=== PATIENT | female | born 1955 | race Caucasian/White ===

== ENCOUNTER 2016-08-06 20:50 | Inpatient (IN) | payer OTHER ==
[~2016-08-06] VITALS: Ht 154.9 cm; Wt 72.8 kg
[~2016-08-06 20:50] MED LIST: ATI1 PO; ELA10 PO; FLA500 PO; LEVAQUIN PO; NOR10T PO; ONDANSETRON ODT4 M1 PO; PRI20 PO; PROTONIX40 MG PO; SYN15 PO; ULT50 PO; ZANTAC150 MG PO
--- NOTE | 2016-08-06 21:15 | NUR ---
PT CAME TO THE ED TODAY WITH CO EPIGASTRIC PAIN WITH N/V/D SINCE THIS AM. WHEN ASKED HOW MANY EPISODES PT STATES " A LOT." PT IS AWAKE AND ALERT. BREATHING EVEN AND UNLABORED. PT DENIES ANY CP. PT RECLINING IN RNEY WITH NAD. WILL CONTINUE TO MONITOR.
[2016-08-06 21:37] LABS: BASOPHIL % 0.7 % (0-2)
[2016-08-06 21:38] LABS: UA SPECIFIC GRAVITY >=1.030 (1.005-1.035); microscopic required? YES; urine erythrocyte 3+ (NEGATIVE)
[2016-08-06 21:56] LABS: CALCIUM 9.6 mg/dL (8.5-10.1); CARBON DIOXIDE 21.3 mmol/L (21-32); CREATININE SERUM 1.1 mg/dL (0.6-1.0); POTASSIUM SERUM 3.4 mmol/L (3.5-5.1)
[2016-08-06 22:00] LABS: ALBUMIN 4.5 g/dL (3.4-5.0); BILIRUBIN TOTAL 0.8 mg/dL (0.20-1.00); TOTAL PROTEIN, SERUM 8.5 g/dL (6.4-8.2)
[2016-08-06 22:05] LABS: PLATELET COUNT 445 x10^3mcL (130-400); RED CELL DISTRIBUTION WIDTH 14.7 % (11.5-14.5)
[2016-08-06 22:49] LABS: CK-MB 1.3 ng/mL (0-3.6)
[2016-08-07] VITALS (7 sets, daily range): BP systolic 115–157; BP diastolic 51–73; Ht 154.9 cm; Wt 72.8 kg
--- NOTE | 2016-08-07 00:29 | NUR ---
REPORT GIVEN TO BEHZAD FOR FURTHER CARE OF PT.
--- NOTE | 2016-08-07 00:40 | NUR ---
RECEIVED PT FROM ED VIA Freeze Tag, CAME IN DUE TO NAUSEA, VOMITING, DIARRHEA AND ABDOMINAL PAIN. AAOX4. C/O 09/11 ACHING HEADACHE. NO SOB NOTED. DENIES CHEST PAIN/PRESSURE, HR AT 101, SINUS TACHYCARDIA ON THE MONITOR. DENIES ABDOMINAL DISCOMFORT. IV SITE PATENT AND INTACT. SIDE RAILS UPX2. CALL LIGHT ON REACH. WILL CONT TO MONITOR
[2016-08-07 00:43] LABS: MAGNESIUM 1.7 mg/dL (1.8-2.4); PHOSPHOROUS 2.7 mg/dL (2.5-4.9)
[2016-08-07 00:44] LABS: CHOLESTEROL/HDL RATIO 6.8
[2016-08-07 00:50] LABS: FREE T4 0.75 ng/dL (0.76-1.46)
[2016-08-07 01:10] LABS: AMPHETAMINE QUAL UR NONE DETECTED (NEG <=1000)
--- NOTE | 2016-08-07 01:27 | NUR ---
MEDICATED W/ KLOR-CON 40 MMEQS FOR POTASSIUM LEVEL OF 3.4 AND MAGNESIUM OXIDE 400 MG PO FOR MAGNESIUM LEVEL=1.7. WILL CONT TO MONITOR
--- NOTE | 2016-08-07 01:27 | NUR ---
K-PAD APPLIED ON THE LOWER BACK.
--- NOTE | 2016-08-07 02:50 | NUR ---
DR. CONNELL MADE AWARE THAT LACTIC ACID=2.5. NEW ORDER RECEIVED FOR REPEAT LACTIC ACID.
--- NOTE | 2016-08-07 03:35 | NUR ---
DR. CONNELL MADE AWARE THAT LACTIC ACID=2.5 AND WBC=16.5, NO NEW ORDERS RECEIVED
[2016-08-07 04:15] LABS: BASOPHIL % 0.2 % (0-2); PLATELET COUNT 364 x10^3mcL (130-400)
[2016-08-07 04:20] LABS: RED CELL DISTRIBUTION WIDTH 14.9 % (11.5-14.5)
[2016-08-07 04:21] LABS: T3 TOTAL 0.85 ng/mL
[2016-08-07 04:26] LABS: CALCIUM 8.2 mg/dL (8.5-10.1); CARBON DIOXIDE 24.7 mmol/L (21-32); CHLORIDE SERUM 106 mmol/L (98-107); CREATININE SERUM 0.7 mg/dL (0.6-1.0); GFR1 > 60 mL/min; GLUCOSE SERUM 105 mg/dL (74-106); MAGNESIUM 3.1 mg/dL (1.8-2.4); PHOSPHOROUS 3.4 mg/dL (2.5-4.9); POTASSIUM SERUM 3.7 mmol/L (3.5-5.1); SODIUM SERUM 139 mmol/L (136-145)
--- NOTE | 2016-08-07 06:22 | NUR ---
PT HAS HER EYES CLOSED, NO S/S OF PAIN AND SOB NOTED. NEEDS ARE ATTENDED. CALL LIGHT ON REACH. SIDE RAILS UPX2. IV SITE PATENT AND INTACT. WILL CONT TO MONITOR
--- NOTE | 2016-08-07 07:05 | NUR ---
BEDSIDE REPORT GIVEN TO INCOMING NURSE KATEY FOR CONTINUITY OF CARE
--- NOTE | 2016-08-07 07:45 | NUR ---
PATIENT AOX4. TELE 21, DENIES CP. LUNGS CTA, NO RESP DISTRESS NOTED ON RA. PERIPHERAL PULSES PALPABLE. BOWEL SOUNDS ACTIVE, LAST BM STATED YESTERDAY WAS DIARRHEA, DENIES DIARRHEA AT THIS TIME. STATES PAIN TO EPIGASTRIC/ABD REGION, WILL MEDICATE APPROPRIATELY PER EMAR. DENIES NAUSEA/VOMIT AT THIS TIME. SKIN INTACT. IV ACCESS TO LW, RUNNING NS INFUSING WELL SITE WNL. CALL LIGHT WITHIN REACH.
--- NOTE | 2016-08-07 09:10 | NUR ---
DR MUSTAFA AND TEAM AT BEDSIDE. INFORMED PATIENT SHE WILL HAVE CT ABD DONE AND SHE MAY BE SEEN BY A GI SPECIALIST DEPENDING ON RESULTS. PATIENT VERBALIZED UNDERTSANDING.
--- NOTE | 2016-08-07 11:00 | NUR ---
PATIENT C/O HEADACHE. TYLENOL GIVEN, WILL CONT TO MONITOR.
--- NOTE | 2016-08-07 12:30 | NUR ---
PATIENT C/O OF MILD NAUSEA AND REQUESTING FOR MEDICATION. ZOFRAN GIVEN. WILL CONT TO MONITOR. VISITOR AT BEDSIDE.
--- NOTE | 2016-08-07 14:33 | NUR ---
PATIENT DOWN FOR CT ABDOMEN. HEPLOCKED.
--- NOTE | 2016-08-07 14:55 | NUR ---
PATIENT BACK FROM CT. REQUESTING TO EAT. INFORMED HER AND THAT WE ARE WAITING FOR CT RESULTS BEFORE DR CAN PUT IN ANY ORDER TO EAT.
--- NOTE | 2016-08-07 15:37 | NUR ---
ASKING "WHY IS IT TAKING SO LONG? SHE HASN'T EATEN SINCE YESTERDAY." INFORMED HIM STILL WAITING ON RESULTS, NO RESULTS AVAILABLE YET. DR TOSCANO MADE AWARE BUT DR MAXWELL TO SPEAK WITH THEM AT THIS TIME BUT STATES PATIENT MOST LIKELY STAYING INPATIENT TONIGHT. INFORMED PATIENT AND THAT EATING MAY WORSEN HER CONDITION AND WE STILL NEED TO FIND OUT WHAT'S WRONG. INFORMED PATIENT SHE CAN EAT BUT SHE WOULD NEED TO SIGN REFUSAL OF TREATMENT FORM. STATES "I HAVE TO GO NOW" AND PATIENT STATES "I MIGHT NOT HAVE A RIDE LATER IF THEY LET ME GO TODAY" INFORMED PATIENT AND RISK OF LEAVING AMA AND NOT RECOMMENDED AND ALSO INFORMED THAT SAID SHE WILL MOST LIKELY STAY THE NIGHT. AND PATIENT VERBALIZED UNDERSTANDING. LEAVING UNIT AND PATIENT REQUESTING FOR PAIN MED FOR ABDOMEN. WILL MEDICATE PER EMAR.
--- NOTE | 2016-08-07 16:45 | NUR ---
CT ABD RESULTS AVAILABLE, DR TOSCANO ORDERED GI CONSULT. ASKED DR IF PATIENT ALLOWED TO EAT, ORDERS PLACED FOR CLEAR LIQUIDS FOR NOW.
--- NOTE | 2016-08-07 17:45 | NUR ---
CLEAR LIQ MEAL TRAY AT BEDSIDE, PATIENT STATES HAS NO APPETITE FOR SOUP. REQUESTING FOR PAIN MEDICATION, ULTRAM NOT VERY EFFECTIVE. WILL MEDICATE WITH TORADOL. DENIES NAUSEA WITH COFFEE. WILL CONT TO MONITOR.
--- NOTE | 2016-08-07 18:45 | NUR ---
PER DR TOSCANO, DR RAMIREZ ALLOWING PATIENT TO EAT WHATEVER SHE CAN TOLERATE UNTIL MIDNIGHT AND WILL BE SEEN BY GI IN THE AM. OFFERED PATIENT PUDDING, APPLESAUCE, JELLO BUT PATIENT REFUSED. OFFERED SANDWICH AND STATES WILL TRY. INFORMED PATIENT TO LET NURSE KNOW IF UNABLE TO TOLERATE AND IF FEELING NAUSEAS OR INCREASE IN ABD PAIN. PATIENT VERBALIZED UNDERSTANDING. WILL CONT TO MONITOR AND ENDORSE TO NOC NURSE.
--- NOTE | 2016-08-07 19:30 | NUR ---
PT ALERT/ORIENTED X4. NO C/O PAIN. NO C/O N/V AT THIS TIME. TELE #21, SR, HR; 68. PT ASSESSED; SEE NSG FLOWSHEET. SAFETY REINFORCED; SEE EDUCAT SHEET. WILL CONTINUE TO MONITOR.
--- NOTE | 2016-08-07 23:52 | NUR ---
PT SLEEPING.NO DISTRESS NOTED. WILL CONTINUE TO MONITOR.
[2016-08-08] VITALS (7 sets, daily range): BP systolic 101–194; BP diastolic 46–95
--- NOTE | 2016-08-08 02:19 | NUR ---
PT SLEEPING. NO DISTRESS NOTED. BREATHING IS EVEN AND UNLABORED. WILL CONTINUE TO MONITOR.
--- NOTE | 2016-08-08 05:00 | NUR ---
PT SLEPT IN MODERATE INTERVALS THROUGHOUT THE NIGHT. WILL CONTINUE TO MONITOR.
[2016-08-08 06:28] LABS: BASOPHIL % 0.5 % (0-2); PLATELET COUNT 313 x10^3mcL (130-400)
[2016-08-08 06:35] LABS: RED CELL DISTRIBUTION WIDTH 14.8 % (11.5-14.5)
[2016-08-08 06:51] LABS: CALCIUM 8.2 mg/dL (8.5-10.1); CARBON DIOXIDE 24.2 mmol/L (21-32); CHLORIDE SERUM 109 mmol/L (98-107); CREATININE SERUM 0.7 mg/dL (0.6-1.0); GFR1 > 60 mL/min; GLUCOSE SERUM 91 mg/dL (74-106); MAGNESIUM 2.2 mg/dL (1.8-2.4); POTASSIUM SERUM 3.5 mmol/L (3.5-5.1); SODIUM SERUM 143 mmol/L (136-145)
--- NOTE | 2016-08-08 07:28 | NUR ---
PT SEEN AWAKE, ALERT, ORIENTED X3. PT NO COMPLAIN PAIN, N/V. PT BREATHING ON RA, EVEN, UNLABORED. IV SITE PATENT, INTACT. IVF INFUSING WELL.
--- NOTE | 2016-08-08 09:00 | NUR ---
PT IS TAKEN TO GI LAB FOR EGD.
--- NOTE | 2016-08-08 10:10 | NUR ---
PT BACK FROM GI LAB AFTER EGD. PT STILL DROWSY, BUT AROUSABLE. WILL PROVIDE MORNING MED LATER WHEN PT IS MORE AWAKE.
--- NOTE | 2016-08-08 12:30 | NUR ---
PT'S FAMILY AT BED SIDE. PT IS AWAKE, BUT COMPLAIN OF ABD PAIN AND NAUSEA. ZOFRAN AND TORODOL GIVEN TO MANAGE.
--- NOTE | 2016-08-08 14:10 | NUR ---
PT STILL COMPLAIN OF NAUSEA AND ABD PAIN. PT VOMIT X2. REGLAN AND DILAUDID GIVEN. WILL RECHECK PT'S VS.
--- NOTE | 2016-08-08 15:42 | NUR ---
PT COMPLAIN OF MODERATE ALVAREZ, TRAMADOL GIVEN. PT STATED NAUSEA RESOVLED MOST AFTER MEDS.
--- NOTE | 2016-08-08 19:40 | NUR ---
PT ALERT/ORIENTED X4. PT C/O ABD PAIN AND N/V. WILL MEDICATE PER MD PRN ORDER. PT ASSESSED; SEE NSG FLOWSHEET. SAFETY REINFORCED; SEE EDUCAT SHEET. WILL CONTINUE TO MONITOR.
--- NOTE | 2016-08-08 19:49 | NUR ---
PT C/O N/V AND ABD PAIN. SPOKE WITH DR TOSCANO WHO STATED TO ADMINISTER DILAUDID 0.5 MG IVP AND THAT WILL HELP WITH THE PAIN WELL THE NAUSEA. DILAUDID ADMINISTERED (SEE EMAR). WILL CONTINUE TO MONITOR.
--- NOTE | 2016-08-08 20:11 | NUR ---
GI-COCOTAIL GIVEN PER ORDER. HOWEVER, PT IS ONLY ABLE TO HOLD MED DOWN FOR ABOUT 30 MINS THEN VOMIT AGAIN. PAIN AND NAUSEA NOT GOT RELIEVED. MADE DR. TOSCANO AND RECEIVING NURSE AWARE. CONCERNS ADRESSED ABOUT PAIN AND HIGH BP. IV SITE PATENT, INTACT. IVF INFUSING WELL.
--- NOTE | 2016-08-08 20:18 | NUR ---
PT NO C/O ABD PAIN OR N/V. PT WAS MEDICATED WITH DILAUDID 0.5 MG IVP AT 1949. WILL CONTINUE TO MONITOR.
--- NOTE | 2016-08-08 23:00 | NUR ---
PT AWAKE. NO C/O PAIN. WILL CONTINUE TO MONITOR.
--- NOTE | 2016-08-09 01:30 | NUR ---
PT SLEEPING. NO DISTRESS NOTED. WILL CONTINUE TO MONITOR.
--- NOTE | 2016-08-09 02:35 | NUR ---
PT C/O ABD PAIN AND N/V. MEDICATED WITH TORADOL AND ZOFRAN PER MD PRN ORDER. WILL CONTINUE TO MONITOR.
--- NOTE | 2016-08-09 03:56 | NUR ---
PT NOW SLEEPING. PT WAS GIVEN ZOFRAN AT 0235 FOR N/V. TORADOL WAS ADMINISTERED AT 0235 FOR ABD PAIN (SEE EMAR). WILL CONTINUE TO MONITOR.
--- NOTE | 2016-08-09 05:23 | NUR ---
PT SLEPT IN MODERATE INTERVALS THROUGHOUT THE NIGHT. MEDICATED FOR ABD PAIN 2X'S DURING SHIFT (SEE EMAR). MEDICATED FOR NAUSEA 1X DURING SHIFT (SEE EMAR). WILL CONTINUE TO MONITOR.
[2016-08-09 06:25] LABS: CALCIUM 8.4 mg/dL (8.5-10.1); CARBON DIOXIDE 22.7 mmol/L (21-32); CHLORIDE SERUM 100 mmol/L (98-107); CREATININE SERUM 0.6 mg/dL (0.6-1.0); GFR1 > 60 mL/min; GLUCOSE SERUM 102 mg/dL (74-106); MAGNESIUM 2.5 mg/dL (1.8-2.4); POTASSIUM SERUM 3.3 mmol/L (3.5-5.1); SODIUM SERUM 137 mmol/L (136-145)
[2016-08-09 06:29] LABS: BASOPHIL % 0.3 % (0-2); PLATELET COUNT 365 x10^3mcL (130-400)
[2016-08-09 06:54] LABS: RED CELL DISTRIBUTION WIDTH 14.7 % (11.5-14.5)
[2016-08-09 06:58] VITALS: BP 158/76
--- NOTE | 2016-08-09 07:42 | NUR ---
PT AWAKE ALERT AND ORIENTED X4. MED SURG PT. PULSES EQUAL BILATERAL NO EDEMA NOTED. LUNGS CTA, PT COMFORTABLE ON RA. BOWEL TONES ACTIVE IN ALL 4 QUADRANTS. PT C/O LOOSE STOOL, ABD PAIN AND NAUSEA. BRP, STEADY GAIT. MILD GENERALIZED WEAKNESS, NON SKID FOOTWEAR IN PLACE, CALL LIGHT IN INREACH. IV THE LW WNL. SKIN IS CDI. PT IS CALM AND COOPERATIVE WITH CARE. WILL CONTINUE TO MONITOR.
--- NOTE | 2016-08-09 09:45 | NUR ---
PT C/O WORSENING ANXIETY, STATES SHE HAS FELT ANXIOUS THROUGHOUT THE NIGHT, MEDICATED ACCORDING TO MANPREET OSCAR CONTINUE TO MONITOR
[2016-08-09 09:46] VITALS: BP 164/83
--- NOTE | 2016-08-09 10:43 | NUR ---
PT RESTING IN BED NO SIGNS OF DISTRESS CALL LIGHT INREACH WILL CONTINUE TO MONITOR. PT ABLE TO MAKE NEEDS KNOWN NO SIGNS OF DISTRESS.
--- NOTE | 2016-08-09 12:55 | NUR ---
PT RESTING IN BED GUSBAND AT BEDSIDE. CALL LIGHT IN REACH. NO SIGNS OF DISTRESS CALL LIGHT IN REACH. WILL CONTINUE TO MONITOR.
[2016-08-09] MEDS ORDERED: AMITIZA24 MC1 PO (14:46)
[2016-08-09] MEDS ORDERED: SEN PO (14:48)
[2016-08-09] MEDS ORDERED: METOCLOPRAMIDE10 M2 PO (14:51)
--- NOTE | 2016-08-09 16:51 | NUR ---
PT GIVEN SANDWICH AND CRACKER, PT ATE AND TOLERATED WELL NO C/O N/V. DR HOPE MADE AWARE.
[2016-08-09 17:46] VITALS: BP 164/83
--- NOTE | 2016-08-09 18:28 | NUR ---
PT RESTIN INBED NO SIGNS OF DISTRESS CALL LIGHT IN REACH WILL CONTINUE TO MONITOR.
--- NOTE | 2016-08-09 18:44 | NUR ---
DISCHARGE INSTRUCTIONS GIVENT O PT, PT MADE AWARE OF FOLLOW UP APPT WITH PCP. PT VERBALIZED UNDERSTANDING. IV DC'D INTACT. ALL BELONGINGS TAKEN WITH PT. PT INFORMED OF MEDICATIONS SENT ELECTRONICALLY TO PHARMACY PT VERBALIZED UNDERSTANDING. PT WHEELED OFF THE FLOOR BY MOLLY.
== END 2016-08-09 18:44 | disposition home or self-care (01) | DRG 391 ==
LOC: ED 20:50 → MU 23:48 → DU 23:48 → MU 08-08 11:35
PROVIDERS: Emergency Medicine; ADMIT Family Medicine
DX: R11.2 Nausea with vomiting, unspecified (principal); N17.0 Acute kidney failure with tubular necrosis; R65.10 Systemic inflammatory response syndrome (SIRS) of non-infectious origin without acute organ dysfunction; T40.2X5A Adverse effect of other opioids, initial encounter; R10.9 Unspecified abdominal pain; E87.6 Hypokalemia; E83.42 Hypomagnesemia; R31.9 Hematuria, unspecified; K21.9 Gastro-esophageal reflux disease without esophagitis; E03.9 Hypothyroidism, unspecified; E78.5 Hyperlipidemia, unspecified; M54.5 Low back pain; G89.29 Other chronic pain; M19.90 Unspecified osteoarthritis, unspecified site; F17.210 Nicotine dependence, cigarettes, uncomplicated; F32.9 Major depressive disorder, single episode, unspecified; F41.9 Anxiety disorder, unspecified; Z68.30 Body mass index [BMI] 30.0-30.9, adult; Z79.891 Long term (current) use of opiate analgesic; Y92.009 Unspecified place in unspecified non-institutional (private) residence as the place of occurrence of the external cause
CPT/HCPCS: 43235; 83880; 84439; 87046; 87046-59; C9113; J1170; J1200; J1610; J1885; J2250; J2310; J2405; J2765; J3010; J3475; J3480; J3490; J7030; Q0092; Q9967

== ENCOUNTER 2017-04-03 15:56 | Inpatient (IN) | payer OTHER ==
[~2017-04-03] VITALS: Ht 160 cm; Wt 65.3 kg
[~2017-04-03 15:56] MED LIST changes: +AMITIZA24 MC1 PO; +METOCLOPRAMIDE10 M2 PO; +SEN PO
[2017-04-03 16:04] VITALS: Ht 160 cm; Wt 65.3 kg
[2017-04-03 16:57] LABS: BASOPHIL % 0.1 % (0-2)
[2017-04-03 16:58] LABS: PLATELET COUNT 493 x10^3mcL (130-400); RED CELL DISTRIBUTION WIDTH 15.7 % (11.5-14.5)
[2017-04-03 17:06] LABS: CALCIUM 9.6 mg/dL (8.5-10.1); CARBON DIOXIDE 20.7 mmol/L (21-32); CHLORIDE SERUM 103 mmol/L (98-107); CREATININE SERUM 0.8 mg/dL (0.6-1.0); GFR1 > 60 mL/min; GLUCOSE SERUM 180 mg/dL (74-106); POTASSIUM SERUM 3.3 mmol/L (3.5-5.1); SODIUM SERUM 141 mmol/L (136-145)
[2017-04-03 17:21] LABS: ALBUMIN 4.6 g/dL (3.4-5.0); ALKALINE PHOSPHATASE 66 U/L (46-116); ALT/SGPT 19 U/L (14-59); AMYLASE 37 U/L (25-115); AST/SGOT 13 U/L (15-37); BILIRUBIN TOTAL 0.8 mg/dL (0.20-1.00); LIPASE 71 IU/L (73-393); T4(THYROXINE) 9.5 ug/dL (4.7-13.3)
[2017-04-03 17:36] LABS: CHOLESTEROL 271 mg/dL (<200); HDL CHOLESTEROL 34 mg/dL (40-60); TOTAL PROTEIN, SERUM 8.4 g/dL (6.4-8.2)
[2017-04-03 18:44] LABS: UA SPECIFIC GRAVITY 1.015 (1.005-1.035); microscopic required? YES; urine erythrocyte 1+ (NEGATIVE)
[2017-04-03 18:51] LABS: AMPHETAMINE QUAL UR NONE DETECTED (NEG <=1000)
[2017-04-03 20:18] VITALS: BP 175/70
[2017-04-03] MEDS ORDERED: HYDROCODONE BIT1 T49 PO (20:48)
[2017-04-03] MEDS ORDERED: APAP/HYDROCODON1 T11 PO (20:50)
[2017-04-03 21:32] LABS: FREE T4 0.96 ng/dL (0.76-1.46); FREE THYROXINE INDEX 2.6 ug/dL (1.4-4.5); T4(THYROXINE) 7.8 ug/dL (4.7-13.3)
[2017-04-03 21:51] LABS: MAGNESIUM 1.8 mg/dL (1.8-2.4); PHOSPHOROUS 3.1 mg/dL (2.5-4.9)
[2017-04-03 21:53] LABS: CHOLESTEROL/HDL RATIO 7.4
[2017-04-03 22:07] LABS: T3 TOTAL 0.85 ng/mL
[2017-04-04 05:29] VITALS: BP 162/76
[2017-04-04 09:09] LABS: BASOPHIL % 0.8 % (0-2); PLATELET COUNT 423 x10^3mcL (130-400); RED CELL DISTRIBUTION WIDTH 15.6 % (11.5-14.5)
[2017-04-04 09:21] VITALS: BP 143/55
[2017-04-04 09:24] LABS: CALCIUM 8.7 mg/dL (8.5-10.1); CARBON DIOXIDE 23.4 mmol/L (21-32); CHLORIDE SERUM 106 mmol/L (98-107); CREATININE SERUM 0.7 mg/dL (0.6-1.0); GFR1 > 60 mL/min; GLUCOSE SERUM 115 mg/dL (74-106); MAGNESIUM 1.9 mg/dL (1.8-2.4); PHOSPHOROUS 3.2 mg/dL (2.5-4.9); POTASSIUM SERUM 3.8 mmol/L (3.5-5.1); SODIUM SERUM 142 mmol/L (136-145)
[2017-04-04 13:37] VITALS: BP 138/72
[2017-04-04 16:40] VITALS: BP 147/62
[2017-04-04 20:51] VITALS: BP 131/77
[2017-04-05] VITALS (11 sets, daily range): BP systolic 117–185; BP diastolic 59–92
[2017-04-05 06:50] LABS: BASOPHIL % 0.4 % (0-2); PLATELET COUNT 359 x10^3mcL (130-400)
[2017-04-05 06:53] LABS: CALCIUM 8.8 mg/dL (8.5-10.1); CARBON DIOXIDE 20.4 mmol/L (21-32); CHLORIDE SERUM 108 mmol/L (98-107); CREATININE SERUM 0.6 mg/dL (0.6-1.0); GFR1 > 60 mL/min; GLUCOSE SERUM 105 mg/dL (74-106); MAGNESIUM 2.2 mg/dL (1.8-2.4); PHOSPHOROUS 2.7 mg/dL (2.5-4.9); SODIUM SERUM 143 mmol/L (136-145)
[2017-04-05 06:54] LABS: RED CELL DISTRIBUTION WIDTH 15.8 % (11.5-14.5)
[2017-04-05] MEDS ORDERED: ELA10 PO (15:26)
[2017-04-05] MEDS ORDERED: LISINOPRIL10 MG PO (16:39)
[2017-04-05] MEDS ORDERED: ZOFRAN4 M3 PO (17:43)
[2017-04-06 00:25] VITALS: BP 143/74
[2017-04-06 05:29] VITALS: BP 156/78
[2017-04-06 06:41] LABS: CALCIUM 8.7 mg/dL (8.5-10.1); CARBON DIOXIDE 23.5 mmol/L (21-32); CHLORIDE SERUM 103 mmol/L (98-107); CREATININE SERUM 0.6 mg/dL (0.6-1.0); GFR1 > 60 mL/min; GLUCOSE SERUM 90 mg/dL (74-106); MAGNESIUM 2.2 mg/dL (1.8-2.4); PHOSPHOROUS 2.7 mg/dL (2.5-4.9); SODIUM SERUM 140 mmol/L (136-145)
[2017-04-06 07:14] LABS: BASOPHIL % 0.2 % (0-2); PLATELET COUNT 371 x10^3mcL (130-400)
[2017-04-06 07:15] LABS: RED CELL DISTRIBUTION WIDTH 15.8 % (11.5-14.5)
[2017-04-06] MEDS ORDERED: LISINOPRIL10 MG PO (09:51)
[2017-04-06 10:06] VITALS: BP 150/75
[2017-04-06 10:35] VITALS: BP 110/61
== END 2017-04-06 14:15 | disposition home or self-care (01) | DRG 391 ==
LOC: ED 15:56 → DU 19:30 → MU 04-05 21:22
PROVIDERS: Emergency Medicine; Family Medicine; Internal Medicine Gastroenterology
PROC: 0DB68ZX Excision of Stomach, Via Natural or Artificial Opening Endoscopic, Diagnostic (ICD-10-PCS; principal; 2017-04-05 13:00)
PROC: 0DJD8ZZ Inspection of Lower Intestinal Tract, Via Natural or Artificial Opening Endoscopic (ICD-10-PCS; 2017-04-05 13:00)
DX: R10.13 Epigastric pain (principal); N17.0 Acute kidney failure with tubular necrosis; T40.2X5A Adverse effect of other opioids, initial encounter; R11.2 Nausea with vomiting, unspecified; K29.70 Gastritis, unspecified, without bleeding; K21.9 Gastro-esophageal reflux disease without esophagitis; M54.5 Low back pain; G89.29 Other chronic pain; I16.0 Hypertensive urgency; R80.9 Proteinuria, unspecified; E87.6 Hypokalemia; R31.9 Hematuria, unspecified; K64.8 Other hemorrhoids; D17.71 Benign lipomatous neoplasm of kidney; E78.2 Mixed hyperlipidemia; D47.3 Essential (hemorrhagic) thrombocythemia; E03.9 Hypothyroidism, unspecified; M19.90 Unspecified osteoarthritis, unspecified site; M81.0 Age-related osteoporosis without current pathological fracture; F41.8 Other specified anxiety disorders; F17.210 Nicotine dependence, cigarettes, uncomplicated; Z68.27 Body mass index [BMI] 27.0-27.9, adult; Y92.009 Unspecified place in unspecified non-institutional (private) residence as the place of occurrence of the external cause
CPT/HCPCS: 43235; 45378; 83880; 84439; J0360; J0500; J1200; J1610; J1630; J1885; J2060; J2250; J2310; J2405; J3010; J3490; J7030; J8597; Q0092

== ENCOUNTER 2017-04-08 14:15 | Emergency (ER) | payer OTHER ==
[~2017-04-08 14:15] MED LIST changes: +APAP/HYDROCODON1 T11 PO; +HYDROCODONE BIT1 T49 PO; +LISINOPRIL10 MG PO; +ZOFRAN4 M3 PO
[2017-04-08 17:18] LABS: ALBUMIN 4.1 g/dL (3.4-5.0); ALKALINE PHOSPHATASE 69 U/L (46-116); ALT/SGPT 60 U/L (14-59); AMYLASE 46 U/L (25-115); AST/SGOT 20 U/L (15-37); BILIRUBIN TOTAL 0.7 mg/dL (0.20-1.00); CARBON DIOXIDE 20.4 mmol/L (21-32); CHLORIDE SERUM 103 mmol/L (98-107); CREATININE SERUM 0.7 mg/dL (0.6-1.0); GFR1 > 60 mL/min; GLUCOSE SERUM 130 mg/dL (74-106); LIPASE 119 IU/L (73-393); SODIUM SERUM 139 mmol/L (136-145); TOTAL PROTEIN, SERUM 8.2 g/dL (6.4-8.2)
[2017-04-08 17:20] LABS: BASOPHIL % 0.1 % (0-2); POTASSIUM SERUM 2.8 mmol/L (3.5-5.1)
[2017-04-08 17:40] LABS: PLATELET COUNT 410 x10^3mcL (130-400); RED CELL DISTRIBUTION WIDTH 15.5 % (11.5-14.5)
[2017-04-08 21:07] VITALS: BP 159/85
== END 2017-04-08 21:07 | disposition home or self-care (01) ==
LOC: ED 14:15
PROVIDERS: Emergency Medicine
DX: G89.29 Other chronic pain (principal); R10.9 Unspecified abdominal pain; I10 Essential (primary) hypertension; Z88.5 Allergy status to narcotic agent
CPT/HCPCS: 83880; J1200; J1630; J2405; J3010; J3480; J3490; J7030

== ENCOUNTER 2017-09-07 20:10 | Inpatient (IN) | payer OTHER ==
[~2017-09-07] VITALS: Ht 154.9 cm; Wt 68.1 kg
[2017-09-07 20:33] VITALS: Ht 154.9 cm; Wt 68.1 kg
[2017-09-07 22:23] LABS: PLATELET COUNT 593 x10^3mcL (130-400); RED CELL DISTRIBUTION WIDTH 16.4 % (11.5-14.5)
[2017-09-07 22:24] LABS: CALCIUM 10.5 mg/dL (8.5-10.1); CARBON DIOXIDE 18.8 mmol/L (21-32); POTASSIUM SERUM 3.6 mmol/L (3.5-5.1)
[2017-09-07 22:28] LABS: ALBUMIN 4.9 g/dL (3.4-5.0); BILIRUBIN TOTAL 0.9 mg/dL (0.20-1.00); TOTAL PROTEIN, SERUM 9.1 g/dL (6.4-8.2)
[2017-09-07 22:54] LABS: BAND NEUTROPHIL 2 % (0-10); MONOCYTE 3 % (0-7); SEGMENTED NEUTROPHILS 90 % (37-75)
[2017-09-07 22:55] LABS: PLATELET MORPHOLOGY PLATELETS INCREASED; rbc morphology (normal/abnorm) ABNORMAL (NORMAL)
[2017-09-07 23:57] LABS: UA SPECIFIC GRAVITY >=1.030 (1.005-1.035); microscopic required? YES; urine erythrocyte 2+ (NEGATIVE)
[2017-09-08 03:16] VITALS: BP 124/56
[2017-09-08 09:02] LABS: T3 TOTAL 0.79 ng/mL
[2017-09-08 09:47] LABS: MAGNESIUM 1.8 mg/dL (1.8-2.4); PHOSPHOROUS 3.9 mg/dL (2.5-4.9)
[2017-09-08 09:48] LABS: CHOLESTEROL/HDL RATIO 7.1
[2017-09-08 09:59] LABS: FREE T4 0.82 ng/dL (0.76-1.46); FREE THYROXINE INDEX 2.1 ug/dL (1.4-4.5); T4(THYROXINE) 6.1 ug/dL (4.7-13.3)
[2017-09-08 10:04] VITALS: BP 124/52
[2017-09-08 12:54] VITALS: BP 106/58
[2017-09-08 14:59] LABS: AMPHETAMINE QUAL UR NONE DETECTED (See below)
[2017-09-08 17:25] VITALS: BP 185/80
[2017-09-08 21:04] VITALS: BP 181/80
[2017-09-08 21:12] VITALS: BP 193/96
[2017-09-09] VITALS (12 sets, daily range): BP systolic 87–181; BP diastolic 39–85
[2017-09-09 06:06] LABS: CALCIUM 8.3 mg/dL (8.5-10.1); CARBON DIOXIDE 24.3 mmol/L (21-32); CHLORIDE SERUM 101 mmol/L (98-107); CREATININE SERUM 0.7 mg/dL (0.6-1.0); GFR1 > 60 mL/min; GLUCOSE SERUM 140 mg/dL (74-106); POTASSIUM SERUM 3.3 mmol/L (3.5-5.1); SODIUM SERUM 137 mmol/L (136-145)
[2017-09-09 06:11] LABS: MAGNESIUM 1.7 mg/dL (1.8-2.4); PHOSPHOROUS 4.1 mg/dL (2.5-4.9)
[2017-09-09 06:56] LABS: BASOPHIL % 0 % (0-2); PLATELET COUNT 452 x10^3mcL (130-400)
[2017-09-10 05:22] VITALS: BP 150/86
[2017-09-10 08:51] VITALS: BP 171/97
[2017-09-10 09:26] LABS: BASOPHIL % 0.3 % (0-2)
[2017-09-10 09:27] LABS: PLATELET COUNT 490 x10^3mcL (130-400); RED CELL DISTRIBUTION WIDTH 16.1 % (11.5-14.5)
[2017-09-10 09:36] LABS: CALCIUM 8.9 mg/dL (8.5-10.1); CARBON DIOXIDE 22.4 mmol/L (21-32); CHLORIDE SERUM 97 mmol/L (98-107); CREATININE SERUM 0.7 mg/dL (0.6-1.0); GFR1 > 60 mL/min; GLUCOSE SERUM 107 mg/dL (74-106); POTASSIUM SERUM 3.1 mmol/L (3.5-5.1); SODIUM SERUM 132 mmol/L (136-145)
[2017-09-10 13:10] VITALS: BP 152/82
[2017-09-10 16:35] VITALS: BP 114/71
== END 2017-09-10 18:35 | disposition home or self-care (01) | DRG 341 ==
LOC: ED 20:10 → DU 09-08 01:01
PROVIDERS: Emergency Medicine; Internal Medicine
PROC: 0DTJ4ZZ Resection of Appendix, Percutaneous Endoscopic Approach (ICD-10-PCS; principal; 2017-09-09)
DX: K35.80 Unspecified acute appendicitis (principal); N17.0 Acute kidney failure with tubular necrosis; R31.9 Hematuria, unspecified; I16.0 Hypertensive urgency; I10 Essential (primary) hypertension; K21.9 Gastro-esophageal reflux disease without esophagitis; K59.09 Other constipation; M54.5 Low back pain; R73.03 Prediabetes; E78.5 Hyperlipidemia, unspecified; E03.9 Hypothyroidism, unspecified; M19.90 Unspecified osteoarthritis, unspecified site; F41.9 Anxiety disorder, unspecified; F32.9 Major depressive disorder, single episode, unspecified; Z68.28 Body mass index [BMI] 28.0-28.9, adult; Z72.0 Tobacco use
CPT/HCPCS: 82962; 83880; 84439; 87046; 87046-59; 94150; J0330; J1170; J1644; J1885; J2175; J2250; J2405; J2543; J2550; J2704; J2710; J3010; J3490; J7030; J7120; Q0092

== ENCOUNTER 2017-10-10 02:10 | Inpatient (IN) | payer OTHER ==
[~2017-10-10] VITALS: Ht 3048 cm; Wt 63.7 kg
[~2017-10-10 02:10] MED LIST changes: +ACETAMINOPHEN &1 TA1 PO; -APAP/HYDROCODON1 T11 PO; -ONDANSETRON ODT4 M1 PO; +ONDANSETRON4 M3
[2017-10-10 02:17] VITALS: Ht 3048 cm; Wt 63.7 kg
[2017-10-10 03:50] LABS: UA SPECIFIC GRAVITY >=1.030 (1.005-1.035); microscopic required? YES; urine erythrocyte 2+ (NEGATIVE)
[2017-10-10 04:00] LABS: CALCIUM 9.9 mg/dL (8.5-10.1); CARBON DIOXIDE 23.6 mmol/L (21-32); CHLORIDE SERUM 103 mmol/L (98-107); CREATININE SERUM 0.8 mg/dL (0.6-1.0); GFR1 > 60 mL/min; GLUCOSE SERUM 174 mg/dL (74-106); POTASSIUM SERUM 3.8 mmol/L (3.5-5.1); SODIUM SERUM 139 mmol/L (136-145)
[2017-10-10 04:04] LABS: ALBUMIN 4.2 g/dL (3.4-5.0); ALKALINE PHOSPHATASE 110 U/L (46-116); ALT/SGPT 15 U/L (14-59); AST/SGOT 20 U/L (15-37); BILIRUBIN TOTAL 0.53 mg/dL (0.20-1.00); LIPASE 68 IU/L (73-393); TOTAL PROTEIN, SERUM 8.2 g/dL (6.4-8.2)
[2017-10-10 04:11] LABS: PLATELET COUNT 716 x10^3mcL (130-400); RED CELL DISTRIBUTION WIDTH 19.4 % (11.5-14.5)
[2017-10-10 04:38] LABS: BAND NEUTROPHIL 3 % (0-10); METAMYELOCTE 3 % (0-2); MONOCYTE 1 % (0-7); SEGMENTED NEUTROPHILS 86 % (37-75)
[2017-10-10 04:40] LABS: PLATELET MORPHOLOGY PLATELETS INCREASED; rbc morphology (normal/abnorm) ABNORMAL (NORMAL)
[2017-10-10 06:10] VITALS: BP 195/82
[2017-10-10 09:32] VITALS: BP 168/87
[2017-10-10 10:03] LABS: MAGNESIUM 1.8 mg/dL (1.8-2.4); PHOSPHOROUS 3.7 mg/dL (2.5-4.9)
[2017-10-10 10:08] LABS: FREE T4 0.93 ng/dL (0.76-1.46); FREE THYROXINE INDEX 2.3 ug/dL (1.4-4.5)
[2017-10-10 10:10] LABS: CHOLESTEROL/HDL RATIO 7.6
[2017-10-10 11:43] LABS: T3 TOTAL 1.15 ng/mL
[2017-10-10 13:51] VITALS: BP 150/68
[2017-10-10 16:44] VITALS: BP 164/87
[2017-10-11] VITALS (7 sets, daily range): BP systolic 152–182; BP diastolic 72–96
[2017-10-11 04:29] LABS: AMPHETAMINE QUAL UR NONE DETECTED (See below)
[2017-10-11 07:38] LABS: BASOPHIL % 0 % (0-2); PLATELET COUNT 630 x10^3mcL (130-400); RED CELL DISTRIBUTION WIDTH 19.4 % (11.5-14.5)
[2017-10-11 07:47] LABS: CALCIUM 8.9 mg/dL (8.5-10.1); CARBON DIOXIDE 24.8 mmol/L (21-32); CHLORIDE SERUM 101 mmol/L (98-107); CREATININE SERUM 0.5 mg/dL (0.6-1.0); GFR1 > 60 mL/min; GLUCOSE SERUM 111 mg/dL (74-106); PHOSPHOROUS 2.8 mg/dL (2.5-4.9); SODIUM SERUM 136 mmol/L (136-145)
[2017-10-11 07:53] LABS: POTASSIUM SERUM 2.8 mmol/L (3.5-5.1)
[2017-10-12 05:04] VITALS: BP 138/76
[2017-10-12 05:44] LABS: CHLORIDE SERUM 98 mmol/L (98-107); CREATININE SERUM 0.6 mg/dL (0.6-1.0); GFR1 > 60 mL/min; GLUCOSE SERUM 92 mg/dL (74-106); PHOSPHOROUS 2.9 mg/dL (2.5-4.9); POTASSIUM SERUM 3.8 mmol/L (3.5-5.1); SODIUM SERUM 133 mmol/L (136-145)
[2017-10-12 06:24] LABS: BASOPHIL % 0 % (0-2); PLATELET COUNT 688 x10^3mcL (130-400); RED CELL DISTRIBUTION WIDTH 19.6 % (11.5-14.5)
[2017-10-12 08:40] VITALS: BP 117/88; BP 178/87
[2017-10-12 09:04] LABS: HELICOBACTER PYLORI IGG QNT 0.44 (0.00-0.79)
[2017-10-12 13:26] VITALS: BP 149/86
[2017-10-12 17:02] VITALS: BP 155/81
[2017-10-12 20:00] VITALS: BP 147/84
[2017-10-13 04:52] VITALS: BP 164/98
[2017-10-13 06:00] LABS: BASOPHIL % 0.1 % (0-2)
[2017-10-13 06:10] LABS: CALCIUM 8.9 mg/dL (8.5-10.1); CARBON DIOXIDE 26.1 mmol/L (21-32); CHLORIDE SERUM 98 mmol/L (98-107); CREATININE SERUM 0.6 mg/dL (0.6-1.0); GFR1 > 60 mL/min; GLUCOSE SERUM 88 mg/dL (74-106); MAGNESIUM 1.9 mg/dL (1.8-2.4); PHOSPHOROUS 2.9 mg/dL (2.5-4.9); POTASSIUM SERUM 3.1 mmol/L (3.5-5.1); SODIUM SERUM 133 mmol/L (136-145)
[2017-10-13 06:14] LABS: RED CELL DISTRIBUTION WIDTH 19.5 % (11.5-14.5)
[2017-10-13 06:21] LABS: PLATELET COUNT 589 x10^3mcL (130-400)
[2017-10-13 08:47] VITALS: BP 155/83
[2017-10-13 13:35] VITALS: BP 140/84
[2017-10-13 17:23] VITALS: BP 132/70
[2017-10-13 21:26] VITALS: BP 135/73
[2017-10-14 05:51] VITALS: BP 169/90
[2017-10-14 06:52] VITALS: BP 151/90
[2017-10-14 08:29] VITALS: BP 161/84
[2017-10-14 12:27] VITALS: BP 109/69
[2017-10-14 16:34] VITALS: BP 131/71
[2017-10-14 21:20] VITALS: BP 116/64
[2017-10-15 05:33] VITALS: BP 111/69
[2017-10-15 10:03] VITALS: BP 138/84
[2017-10-15 11:47] LABS: BASOPHIL % 0.5 % (0-2)
[2017-10-15 11:56] LABS: PLATELET COUNT 569 x10^3mcL (130-400); RED CELL DISTRIBUTION WIDTH 20.3 % (11.5-14.5)
[2017-10-15 12:21] LABS: CALCIUM 8.9 mg/dL (8.5-10.1); CARBON DIOXIDE 26.5 mmol/L (21-32); CHLORIDE SERUM 104 mmol/L (98-107); CREATININE SERUM 0.6 mg/dL (0.6-1.0); GFR1 > 60 mL/min; GLUCOSE SERUM 97 mg/dL (74-106); SODIUM SERUM 137 mmol/L (136-145)
[2017-10-15 12:37] LABS: POTASSIUM SERUM 2.9 mmol/L (3.5-5.1)
[2017-10-15] MEDS ORDERED: CIPRO500 MG PO (13:18)
[2017-10-15] MEDS ORDERED: FLAGYL500 MG PO (13:19)
[2017-10-15 13:39] VITALS: BP 138/84
[2017-10-15 13:46] VITALS: BP 115/64
== END 2017-10-15 14:45 | disposition home or self-care (01) | DRG 919 ==
LOC: ED 02:10 → DU 05:21
PROVIDERS: Emergency Medicine; Family Medicine
DX: T81.31XA Disruption of external operation (surgical) wound, not elsewhere classified, initial encounter (principal); N17.0 Acute kidney failure with tubular necrosis; K52.89 Other specified noninfective gastroenteritis and colitis; K21.9 Gastro-esophageal reflux disease without esophagitis; F41.8 Other specified anxiety disorders; M81.0 Age-related osteoporosis without current pathological fracture; I16.0 Hypertensive urgency; E78.5 Hyperlipidemia, unspecified; R80.9 Proteinuria, unspecified; E78.1 Pure hyperglyceridemia; E78.00 Pure hypercholesterolemia, unspecified; E03.9 Hypothyroidism, unspecified; Z68.26 Body mass index [BMI] 26.0-26.9, adult
CPT/HCPCS: 83880; 84439; C9113; J0744; J1885; J2060; J2550; J3010; J3480; J3490; J7030; Q0092; Q0162

== ENCOUNTER 2018-05-01 11:26 | Emergency (ER) | payer OTHER ==
[~2018-05-01] VITALS: Ht 157.5 cm; Wt 63.5 kg
[~2018-05-01 11:26] MED LIST changes: +CIPRO500 MG PO; +FLAGYL500 MG PO
[2018-05-01 11:33] VITALS: Ht 157.5 cm; Wt 63.5 kg
[2018-05-01 12:12] LABS: BASOPHIL % 0.1 % (0-2)
[2018-05-01 12:21] LABS: CALCIUM 9.5 mg/dL (8.5-10.1); CREATININE SERUM 1.3 mg/dL (0.6-1.0); POTASSIUM SERUM 3.2 mmol/L (3.5-5.1)
[2018-05-01 12:22] LABS: PLATELET COUNT 474 x10^3mcL (130-400); RED CELL DISTRIBUTION WIDTH 18.3 % (11.5-14.5)
[2018-05-01 12:26] LABS: ALBUMIN 4.1 g/dL (3.4-5.0); BILIRUBIN TOTAL 0.8 mg/dL (0.20-1.00)
[2018-05-01 15:39] VITALS: BP 125/62
== END 2018-05-01 13:29 | disposition home or self-care (01) ==
LOC: ED 11:26
PROVIDERS: Emergency Medicine
DX: G89.29 Other chronic pain (principal); R10.13 Epigastric pain; E86.0 Dehydration; F17.210 Nicotine dependence, cigarettes, uncomplicated; I10 Essential (primary) hypertension; F32.9 Major depressive disorder, single episode, unspecified; K21.9 Gastro-esophageal reflux disease without esophagitis; M81.0 Age-related osteoporosis without current pathological fracture; Z88.5 Allergy status to narcotic agent
CPT/HCPCS: J1885; J2405; J7030; Q0092

== ENCOUNTER 2018-08-21 08:04 | Emergency (ER) | payer OTHER ==
[~2018-08-21] VITALS: Ht 157.5 cm; Wt 66.2 kg
[2018-08-21 08:14] VITALS: Ht 157.5 cm; Wt 66.2 kg
[2018-08-21 09:17] LABS: CALCIUM 9.3 mg/dL (8.5-10.1); CARBON DIOXIDE 25.9 mmol/L (21-32); CHLORIDE SERUM 102 mmol/L (98-107); CREATININE SERUM 0.9 mg/dL (0.6-1.0); GFR1 > 60 mL/min; GLUCOSE SERUM 132 mg/dL (74-106); POTASSIUM SERUM 3.5 mmol/L (3.5-5.1); SODIUM SERUM 139 mmol/L (136-145)
[2018-08-21 09:29] LABS: ALKALINE PHOSPHATASE 61 U/L (46-116); ALT/SGPT 85 U/L (14-59); AMYLASE 54 U/L (25-115); AST/SGOT 80 U/L (15-37); BILIRUBIN TOTAL 0.9 mg/dL (0.20-1.00); LIPASE 134 IU/L (73-393); TOTAL PROTEIN, SERUM 7.8 g/dL (6.4-8.2)
[2018-08-21 09:54] LABS: BASOPHIL % 0.1 % (0-2)
[2018-08-21 09:58] LABS: PLATELET COUNT 482 x10^3mcL (130-400); RED CELL DISTRIBUTION WIDTH 16.6 % (11.5-14.5)
[2018-08-21 10:45] VITALS: BP 132/77
== END 2018-08-21 10:45 | disposition home or self-care (01) ==
LOC: ED 08:04
PROVIDERS: Emergency Medicine
DX: K29.70 Gastritis, unspecified, without bleeding (principal); F32.9 Major depressive disorder, single episode, unspecified; F41.9 Anxiety disorder, unspecified; K21.9 Gastro-esophageal reflux disease without esophagitis; Z88.5 Allergy status to narcotic agent
CPT/HCPCS: J0780; J1885; J7030

== ENCOUNTER 2020-01-29 23:09 | Emergency (ER) | payer OTHER ==
[~2020-01-29] VITALS: Ht 157.5 cm; Wt 70.8 kg
[2020-01-30 01:22] LABS: CALCIUM 9.3 mg/dL (8.5-10.1); CARBON DIOXIDE 18.9 mmol/L (21-32); CHLORIDE SERUM 99 mmol/L (98-107); CREATININE SERUM 0.9 mg/dL (0.6-1.0); GFR1 > 60 mL/min; GLUCOSE SERUM 159 mg/dL (74-106); POTASSIUM SERUM 3.4 mmol/L (3.5-5.1); SODIUM SERUM 136 mmol/L (136-145)
[2020-01-30 01:26] LABS: ALBUMIN 4.2 g/dL (3.4-5.0); ALKALINE PHOSPHATASE 73 U/L (46-116); ALT/SGPT 21 U/L (14-59); AST/SGOT 14 U/L (15-37); BILIRUBIN TOTAL 1.07 mg/dL (0.20-1.00); LIPASE 325 IU/L (73-393)
[2020-01-30 01:53] LABS: BASOPHIL % 0.1 % (0-2); PLATELET COUNT 531 x10^3mcL (130-400); RED CELL DISTRIBUTION WIDTH 17.8 % (11.5-14.5)
[2020-01-30 02:19] LABS: microscopic required? YES; urine erythrocyte 1+ (NEGATIVE)
[2020-01-30 05:16] VITALS: BP 177/87
[2020-01-31] MEDS ORDERED: PYRIDIUM100 MG PO (12:39)
[2020-01-31] MEDS ORDERED: KEFLEX500 M1 PO (12:39)
[2020-01-31] MEDS ORDERED: METFORMIN HCL500 M4 PO (12:39)
[2020-01-31] MEDS ORDERED: NOR7T PO (12:40)
[2020-01-31] MEDS ORDERED: ZOF4 PO (12:40)
[2020-02-03] MEDS ORDERED: BACDS PO (12:15)
== END 2020-01-30 05:17 | disposition home or self-care (01) ==
LOC: ED 23:09
PROVIDERS: Emergency Medicine
DX: N39.0 Urinary tract infection, site not specified (principal); E11.9 Type 2 diabetes mellitus without complications; K21.9 Gastro-esophageal reflux disease without esophagitis; M81.0 Age-related osteoporosis without current pathological fracture; Z88.5 Allergy status to narcotic agent
CPT/HCPCS: J0696; J2405; J3010; J7030; J7060